=== PATIENT | male | born 1955 | race Caucasian/White ===

== ENCOUNTER 2017-11-15 07:43 | Day surgery (SDC) | payer OTHER ==
[~2017-11-15] VITALS: Ht 182.9 cm; Wt 116.6 kg
[~2017-11-15 07:43] MED LIST: MELO7.5 PO
== END 2017-11-15 23:22 | disposition home or self-care (01) ==
LOC: ORSCMMR 07:43 → ORD 09:00 → ORSCMMR 09:00
PROVIDERS: Internal Medicine Gastroenterology
PROC: 0DBH8ZX Excision of Cecum, Via Natural or Artificial Opening Endoscopic, Diagnostic (ICD-10-PCS; principal; 2017-11-15 09:00)
PROC: 0DBK8ZX Excision of Ascending Colon, Via Natural or Artificial Opening Endoscopic, Diagnostic (ICD-10-PCS; principal; 2017-11-15 09:00)
PROC: 0DBN8ZX Excision of Sigmoid Colon, Via Natural or Artificial Opening Endoscopic, Diagnostic (ICD-10-PCS; principal; 2017-11-15 09:00)
DX: Z12.11 Encounter for screening for malignant neoplasm of colon (principal); K63.5 Polyp of colon; D12.2 Benign neoplasm of ascending colon; D12.0 Benign neoplasm of cecum; E16.2 Hypoglycemia, unspecified; Z86.010 Personal history of colon polyps; Z79.899 Other long term (current) drug therapy; I10 Essential (primary) hypertension
CPT/HCPCS: 88305; J7120

== ENCOUNTER → 2019-12-18 | Outpatient (CLI) | payer OTHER | END | disposition home or self-care (01) | LOC: LAB SHORT 09:43 → PLD 09:43 | DX: D03.21 Melanoma in situ of right ear and external auricular canal (principal) | CPT/HCPCS: 88305 ==

== ENCOUNTER 2020-02-06 07:47 | Day surgery (SDC) | payer OTHER ==
[~2020-02-06] VITALS: Ht 177.8 cm; Wt 109.5 kg
--- NOTE | 2020-02-06 11:35 | NUR ---
02/06/20 1135 DESTIN PATEL PATIENT TO STEP DOWN VIA GURNEY. DENIES PAIN OR NAUSEA AND IS TOLERATING PO INTAKE. PATIENT IS ENGAGED IN DISCHARGE TEACHING AND DENIES QUESTIONS OR CONCERNS. IV DC'D AND PATIENT DRESSED INDEPENDENTLY. AMBULATED TO CAR WITH NO ASSISTANCE.
== END 2020-02-06 11:30 | disposition home or self-care (01) ==
LOC: ORSCSDS 07:47
PROVIDERS: Otolaryngology
PROC: 0HB2XZX Excision of Right Ear Skin, External Approach, Diagnostic (ICD-10-PCS; principal; 2020-02-06 09:15)
DX: C76.0 Malignant neoplasm of head, face and neck (principal)
CPT/HCPCS: 88305; J1100; J2250; J2405; J2704; J3010; J7120

== ENCOUNTER 2025-03-05 17:56 | Inpatient (IN) | payer OTHER ==
[~2025-03-05] VITALS: Ht 182.9 cm; Wt 103.4 kg
[2025-03-05] MEDS ORDERED: HYDROmorphone HCl/Pf 1MG SYR IV ONE (19:25)
[2025-03-05] MEDS ORDERED: Piperacillin/Tazobactam Sod 3.375 GM in NS 100 ML IV ONE (19:25)
[2025-03-05] MEDS ORDERED: OxyCODONE 5 mg/Acetamin 325 mg TABLET PO PRN (21:50)
[2025-03-05] MEDS ORDERED: Ondansetron HCl 2 MG / ML 2ML Vial IV PRN (21:50)
[2025-03-05 22:24] VITALS: BP 136/103
[2025-03-05] MEDS ORDERED: MELO7.5 PO (22:25)
--- NOTE | 2025-03-05 23:10 | NUR ---
ADMIT PT ARRIVED TO RM 211 VIA W/C APPROX 2215. IND TRANSFER TO BED. AOX4. ADMITTED FOR ACUTE JOHANNY. DENIES N/V. REPORTS 8/10 PAIN TO RUQ, PAIN WORSE W/LYING STILL 7 HAS BEEN GOING ON FOR 3-4 DAYS. MEDICATED W/1 PERCOCET TAB. WHEN REASSESSED PT DENIES PAIN RELIEF-WILL INFORM HOSPITALIST & ASK FOR FURTHER PAIN MANAGEMENT.
[2025-03-05] MEDS ORDERED: FentaNYL Citrate 50 MCG/ML 2 ML Injection IV PRN (23:55)
[2025-03-06] VITALS (9 sets, daily range): BP systolic 111–165; BP diastolic 70–87
[2025-03-06] MEDS ORDERED: FentaNYL Citrate 50 MCG/ML 2 ML Injection IV PRN ×4 (03:00→14:35)
[2025-03-06] MEDS ORDERED: Piperacillin/Tazobactam Sod 3.375 GM in NS 100 ML IV SCH (04:00)
[2025-03-06 06:02] LABS: Hematocrit 44.9 % (37.0-53.0); Hemoglobin 15.7 g/dL (13.5-17.5); Mean Corpuscular HGB Conc 35.0 g/dL (31.5-36.5); Mean Corpuscular Volume 92 fL (80-100); NRBC ABSOLUTE 0.00 K/mm3 (0.00-0.02); NRBC Auto 0.0 /100 WBC (0.0-0.2); Platelet Count 144 K/mm3 (150-400); RDW Coefficient Variation 13.3 % (11.7-14.2); RDW Standard Deviation 45.1 fL (35.1-46.3)
[2025-03-06 06:25] LABS: Alanine Aminotransfer (ALT/SGP 40.0 U/L (12-78); Albumin, Blood 3.2 g/dL (3.4-5.0); Albumin/Globulin Ratio 0.8 (0.8-1.8); Anion Gap 10.0 mmol/L (3-11); Aspartate Aminotrans (AST/SGOT 23.0 U/L (12-37); Bilirubin, Total 4.2 mg/dL (0.1-1.0); Blood Urea Nitrogen 12.0 mg/dL (8-24); CO2, Blood 26.0 mmol/L (21-32); Calcium, Blood 8.8 mg/dL (8.5-10.1); Chloride, Blood 100.0 mmol/L (98-108); Creatinine, Blood 0.82 mg/dL (0.60-1.20); Globulin, Blood 4.0 g/dL (2.2-4.0); Glucose, Blood 196.0 mg/dL (70-99); Potassium, Blood 4.2 mmol/L (3.5-5.5); Sodium, Blood 132.0 mmol/L (136-145); Total Protein, Blood 7.2 g/dL (6.4-8.2)
--- NOTE | 2025-03-06 07:42 | NUR ---
SHIFT SUMMARY AOX4. VSS. DENIES N/V. REPORTS RUQ ABD PAIN 03/18, MEDICATED W/25MCG IV FENTANYL WHICH HAS LASTED APPROX Q2H. REPORTS INCREASED BLOATING FEELING. HAS BEEN NPO SINCE 0000 FOR POSSIBLE SURGERY TODAY. AWAITING SURGICAL CONSULT. CALL LIGHT IN REACH.
[2025-03-06] MEDS ORDERED: Lactobacil 2-S.Thermo-Bifido 1 1 Cap PO SCH (09:00)
--- NOTE | 2025-03-06 12:23 | NUR ---
PT TRANSPORT VIA WHEELCHAIR TO PRE-OP FOR SURGERY
[2025-03-06] MEDS ORDERED: Bupivacaine 0.5% HCl 5 MG/ML 30MLVIAL ONE (14:29)
[2025-03-06] MEDS ORDERED: Ketorolac Tromethamine 30mg Vial ONE (14:30)
[2025-03-06] MEDS ORDERED: Ondansetron HCl 2 MG / ML 2ML Vial ONE (14:30)
[2025-03-06] MEDS ORDERED: Rocuronium Bromide 10 MG/ML 5ML Injection IV ONE ×3 (14:30→16:48)
[2025-03-06] MEDS ORDERED: Dexamethasone Sod Phos 10 MG/ML 1ML VIAL ONE (14:30)
[2025-03-06] MEDS ORDERED: FentaNYL Citrate 50 MCG/ML 2 ML Injection ONE (14:33)
[2025-03-06] MEDS ORDERED: Ondansetron HCl 2 MG / ML 2ML Vial IV PRN (14:35)
[2025-03-06] MEDS ORDERED: HYDROmorphone HCl/Pf 1MG SYR IV PRN (14:35)
[2025-03-06] MEDS ORDERED: Labetalol HCL 5 MG/ML 4ML Injection (Single Dose) IV PRN (14:35)
[2025-03-06] MEDS ORDERED: HYDROmorphone HCl/Pf 1MG SYR ONE (16:35)
[2025-03-06] MEDS ORDERED: Phenylephrine HCl 100 MCG/ML-NS 10MLSYR (1MG/10ML) ONE (16:36)
[2025-03-06] MEDS ORDERED: Sugammadex Sodium 200 MG/2ML SDV (100 MG/ML) ONE (17:07)
--- NOTE | 2025-03-06 19:39 | NUR ---
SHIFT SUMMARY 1924 - ARRIVAL TO UNIT PT ARRIVED TO UNIT FROM PACU. PT A&O x4. VSS, DIAPHORETIC. FAN PROVIDED. PT DENIES PAIN AT THIS TIME. LAP SITE x4 c WOUND GLUE C/D/I. AUDI DRAIN TO R ABD c SEROSANG DRAINAGE IN BULB. CHG TEG DRESSING C/D/I. PT TOLERATING CLEAR LIQUID DIET, DENIES NAUSEA. SIGNIFICANT OTHER @ BEDSIDE. NO NEEDS STATED. CALL LIGHT IN REACH, BED IN LOWEST POSITION. 1938 - BEDSIDE REPORT GIVEN TO ROBERT CORTES
[2025-03-07 00:14] VITALS: BP 113/70
--- NOTE | 2025-03-07 04:24 | NUR ---
NOC SUMMARY- PT PAIN MANAGED WELL. PT TOLERATING PO. PT AMBULATORY AND VOIDING. PT DRESSINGS ARE C/D/I. AUDI DRAIN PUTTING OUT SS FLUID. CALL LIGHT IN REACH.
[2025-03-07 04:31] VITALS: BP 128/82
[2025-03-07 05:11] LABS: BASOPHILS ABSOLUTE AUTO 0.03 K/mm3 (0.00-0.23); BASOPHILS PERCENT AUTO 0 % (0-2); EOSINOPHILS ABSOLUTE AUTO 0.00 K/mm3 (0.00-0.68); EOSINOPHILS PERCENT AUTO 0 % (0-6); Hematocrit 42.7 % (37.0-53.0); Hemoglobin 14.7 g/dL (13.5-17.5); IMMATURE GRAN ABSOLUTE AUTO 0.13 K/mm3 (0.00-0.10); IMMATURE GRAN PERCENT AUTO 1 % (0-1); LYMPHOCYTES ABSOLUTE AUTO 0.72 K/mm3 (0.84-5.20); LYMPHOCYTES PERCENT AUTO 4 % (21-46); MONOCYTES ABSOLUTE AUTO 0.64 K/mm3 (0.16-1.47); MONOCYTES PERCENT AUTO 4 % (4-13); Mean Corpuscular HGB Conc 34.4 g/dL (31.5-36.5); Mean Corpuscular Volume 93 fL (80-100); NEUTROPHILS ABSOLUTE AUTO 15.59 K/mm3 (1.96-9.15); NEUTROPHILS PERCENT AUTO 91 % (41-73); NRBC ABSOLUTE 0.00 K/mm3 (0.00-0.02); NRBC Auto 0.0 /100 WBC (0.0-0.2); Platelet Count 147 K/mm3 (150-400); RDW Coefficient Variation 13.6 % (11.7-14.2); RDW Standard Deviation 46.5 fL (35.1-46.3)
[2025-03-07 05:36] LABS: Alanine Aminotransfer (ALT/SGP 74.0 U/L (12-78); Albumin, Blood 2.7 g/dL (3.4-5.0); Albumin/Globulin Ratio 0.7 (0.8-1.8); Anion Gap 8.0 mmol/L (3-11); Aspartate Aminotrans (AST/SGOT 49.0 U/L (12-37); Bilirubin, Direct 0.7 mg/dL (0.0-0.3); Bilirubin, Total 2.1 mg/dL (0.1-1.0); Blood Urea Nitrogen 22.0 mg/dL (8-24); CO2, Blood 28.0 mmol/L (21-32); Calcium, Blood 8.8 mg/dL (8.5-10.1); Chloride, Blood 101.0 mmol/L (98-108); Creatinine, Blood 0.97 mg/dL (0.60-1.20); Globulin, Blood 4.1 g/dL (2.2-4.0); Glucose, Blood 239.0 mg/dL (70-99); Potassium, Blood 3.9 mmol/L (3.5-5.5); Sodium, Blood 133.0 mmol/L (136-145); Total Protein, Blood 6.8 g/dL (6.4-8.2)
[2025-03-07 07:28] VITALS: BP 122/75
[2025-03-07] MEDS ORDERED: OMEP20ER PO (09:22)
[2025-03-07] MEDS ORDERED: NS 250 ML IV PRN (10:35)
[2025-03-07 14:41] VITALS: BP 166/92
--- NOTE | 2025-03-07 16:37 | NUR ---
SHIFT SUMMARY MR PETERS IS OX4. POD#1. HE ADVANCED TO REGULAR DIET TODAY; HE ATE 50% OF LUNCH WITHOUT NAUSEA. AUDI DRAIN WITH S/S DRAINAGE, 80CC OUTPUT THIS SHIFT. MR PETERS WAS EDUCATED ON HOW TO EMPTY AUDI DRAIN, RECORD OUTPUT AND SET BULB SUCTION. PAIN UP TO 6/10 HELPED WITH 1 PERCOCET THIS SHIFT. HE HAS AMBULATED INDEPENDENTLY. +FLATUS. NO BM. BED LOW, CALL LIGHT IN REACH.
--- NOTE | 2025-03-07 17:07 | NUR ---
REPORT TO LUZ CORTES
[2025-03-07 19:34] VITALS: BP 133/81
[2025-03-08 05:58] LABS: BASOPHILS ABSOLUTE AUTO 0.02 K/mm3 (0.00-0.23); BASOPHILS PERCENT AUTO 0 % (0-2); EOSINOPHILS ABSOLUTE AUTO 0.01 K/mm3 (0.00-0.68); EOSINOPHILS PERCENT AUTO 0 % (0-6); Hematocrit 38.3 % (37.0-53.0); Hemoglobin 13.1 g/dL (13.5-17.5); IMMATURE GRAN ABSOLUTE AUTO 0.08 K/mm3 (0.00-0.10); IMMATURE GRAN PERCENT AUTO 1 % (0-1); LYMPHOCYTES ABSOLUTE AUTO 1.24 K/mm3 (0.84-5.20); LYMPHOCYTES PERCENT AUTO 8 % (21-46); MONOCYTES ABSOLUTE AUTO 0.77 K/mm3 (0.16-1.47); MONOCYTES PERCENT AUTO 5 % (4-13); Mean Corpuscular HGB Conc 34.2 g/dL (31.5-36.5); Mean Corpuscular Volume 92 fL (80-100); NEUTROPHILS ABSOLUTE AUTO 12.78 K/mm3 (1.96-9.15); NEUTROPHILS PERCENT AUTO 86 % (41-73); NRBC ABSOLUTE 0.00 K/mm3 (0.00-0.02); NRBC Auto 0.0 /100 WBC (0.0-0.2); Platelet Count 165 K/mm3 (150-400); RDW Coefficient Variation 13.3 % (11.7-14.2); RDW Standard Deviation 45.4 fL (35.1-46.3)
[2025-03-08 06:20] LABS: Alanine Aminotransfer (ALT/SGP 100.0 U/L (12-78); Albumin, Blood 2.4 g/dL (3.4-5.0); Albumin/Globulin Ratio 0.6 (0.8-1.8); Anion Gap 8.0 mmol/L (3-11); Aspartate Aminotrans (AST/SGOT 74.0 U/L (12-37); Bilirubin, Total 1.2 mg/dL (0.1-1.0); Blood Urea Nitrogen 19.0 mg/dL (8-24); CO2, Blood 28.0 mmol/L (21-32); Calcium, Blood 8.4 mg/dL (8.5-10.1); Chloride, Blood 102.0 mmol/L (98-108); Creatinine, Blood 0.82 mg/dL (0.60-1.20); Globulin, Blood 3.9 g/dL (2.2-4.0); Glucose, Blood 158.0 mg/dL (70-99); Potassium, Blood 4.0 mmol/L (3.5-5.5); Sodium, Blood 134.0 mmol/L (136-145); Total Protein, Blood 6.3 g/dL (6.4-8.2)
[2025-03-08 06:27] VITALS: BP 122/77
--- NOTE | 2025-03-08 06:39 | NUR ---
SHIFT SUMMARY NO ACUTE CHANGES T/O NIGHT. POD 1 LAP APPY, ABD INCISIONS CDI- NO DRAINAGE NOTED. AUDI TO RIGHT ABD, DRESSING CDI WITH BULB COMPRESSED. IS VOIDING. TOMMY PO INTAKE. REPORTS PASSING FLATUS.IV PATENT/SL. PAIN MANAGED PER EMAR. HAS CALL LIGHT IN REACH. WILL GIVE REPORT TO ONCOMING RN.
[2025-03-08 07:42] VITALS: BP 126/81
[2025-03-08] MEDS ORDERED: Enoxaparin 40 MG/0.4 ML SYR SC SCH (09:00)
[2025-03-08] MEDS ORDERED: AMOCLA875 PO (10:24)
[2025-03-08] MEDS ORDERED: Percocet 5-3251 EACH PO (10:24)
--- NOTE | 2025-03-08 11:52 | NUR ---
DISCHARGE PATIENT VSS, LAP SITES INTACT. AUDI DRAIN EDUCATION COMPLETE. ALL INSTRUCTIONS READ AND SIGNED. HARD SCIPT WITH PATIENT AND FAXED ABX TO [facility]. VITAL SIGNS STABLE. PATIENT WALKS OUT ON OWN ACCORD.
== END 2025-03-08 11:45 | disposition home or self-care (01) | DRG 417 ==
LOC: ER 17:56 → SURS 21:45 → EDBEDREQ 22:03 → SURS 03-08 11:45
PROVIDERS: Family Medicine; Nurse Practitioner Acute Care; Surgery; ADMIT Student in an Organized Health Care Education/Training Program
PROC: 3E03329 Introduction of Other Anti-infective into Peripheral Vein, Percutaneous Approach (ICD-10-PCS; 2025-03-05)
PROC: 0DNU4ZZ Release Omentum, Percutaneous Endoscopic Approach (ICD-10-PCS; 2025-03-06)
PROC: 0DNW4ZZ Release Peritoneum, Percutaneous Endoscopic Approach (ICD-10-PCS; 2025-03-06)
PROC: 0W9G40Z Drainage of Peritoneal Cavity with Drainage Device, Percutaneous Endoscopic Approach (ICD-10-PCS; 2025-03-06)
PROC: 8E0W4CZ Robotic Assisted Procedure of Trunk Region, Percutaneous Endoscopic Approach (ICD-10-PCS; 2025-03-06)
PROC: BF50200 Other Imaging of Bile Ducts using Fluorescing Agent, Indocyanine Green Dye, Intraoperative (ICD-10-PCS; 2025-03-06)
PROC: 0FT44ZZ Resection of Gallbladder, Percutaneous Endoscopic Approach (ICD-10-PCS; principal; 2025-03-06 13:00)
DX: K80.01 Calculus of gallbladder with acute cholecystitis with obstruction (principal); K65.1 Peritoneal abscess; K65.3 Choleperitonitis; R18.8 Other ascites; Q44.1 Other congenital malformations of gallbladder; E87.1 Hypo-osmolality and hyponatremia; K82.A1 Gangrene of gallbladder in cholecystitis; K66.0 Peritoneal adhesions (postprocedural) (postinfection); R73.03 Prediabetes; R10.13 Epigastric pain; R10.11 Right upper quadrant pain
CPT/HCPCS: 36415; 74181; 76705; 80053; 82248; 83690; 85025; 85027; 88304; 96365; 96375; 99285-25; A9270; J1100; J1171; J1650; J1885; J2371; J2405; J2543; J2704; J3010; J7050; J7120